=== PATIENT | female | born 1975 | race Caucasian/White ===

== ENCOUNTER 2017-12-09 11:57 | Emergency (ER) | payer BC ==
[~2017-12-09] VITALS: Ht 154.9 cm; Wt 63.5 kg
[~2017-12-09 11:57] MED LIST: ACETAMINOPHEN-1 EAC1 PO; CARAFATE 1 GM TA1 GM PO; HYDROXYCHLOROQ200 M1 PO; IBUPROFEN 800800 M1 PO; MEDROLDOSEPACK PO; PEPCID20 MG PO; PROMETHAZINE V473 ML PO; TESSALON PERLE100 MG PO; ZPAK PO
[2017-12-09] MEDS ORDERED: APAP650 PO (12:37)
[2017-12-09 13:17] LABS: INFLUENZA B ANTIGEN None Detected (None Detect)
[2017-12-09 14:42] VITALS: BP 139/73
== END 2017-12-09 14:42 | disposition home or self-care (01) ==
LOC: M.ERS 11:57
PROVIDERS: Emergency Medicine
DX: J09.X2 Influenza due to identified novel influenza A virus with other respiratory manifestations (principal); M06.9 Rheumatoid arthritis, unspecified; Z88.0 Allergy status to penicillin

== ENCOUNTER 2019-05-18 16:19 | Emergency (ER) | payer BC ==
[~2019-05-18] VITALS: Ht 154.9 cm; Wt 61.2 kg
[~2019-05-18 16:19] MED LIST changes: +APAP650 PO
[2019-05-18] MEDS ORDERED: ALLEGRA-D 12 H1 EAC1 PO (16:37)
[2019-05-18 17:47] LABS: ABSOLUTE BASOPHILS 0.1 thou/uL (0.0-0.2); ABSOLUTE EOSINOPHILS 0.3 thou/uL (0.0-0.7); ABSOLUTE LYMPHOCYTES 1.7 thou/uL (0.8-5.3); ABSOLUTE MONOCYTES 0.6 thou/uL (0.0-1.2); EOSINOPHILS 4.3 %; HEMATOCRIT 36.6 % (37.0-47.0); HEMOGLOBIN 12.4 gm/dL (12.0-15.0); LYMPHOCYTES 22.5 %; MCH 30.3 pg (26.0-34.0); MCHC 33.9 g/dL (28.0-37.0); MCV 89.3 fL (80.0-100.0); MONOCYTES 7.5 %; MPV 7.2 fl. (7.2-11.1); NUCLEATED RBCS 0 /100WBC; PLATELET COUNT* 275 thou/uL (150-400); POLYS 64.7 %; RDW-CV 13.1 % (10.5-14.5); WBC 7.8 thou/uL (4.0-11.0)
[2019-05-18 18:08] LABS: CALCIUM 8.2 mg/dL (8.5-10.1); CREATININE 0.8 mg/dL (0.6-1.3); POTASSIUM 3.6 mmol/L (3.5-5.1)
[2019-05-18 18:12] VITALS: BP 138/67
[2019-05-18 18:16] LABS: ALBUMIN 3.4 g/dL (3.4-5.0); TOTAL BILIRUBIN 0.2 mg/dL (<0.1-1.0); TOTAL PROTEIN 6.4 g/dL (6.4-8.2)
== END 2019-05-18 18:16 | disposition home or self-care (01) ==
LOC: M.ERS 16:19
PROVIDERS: Family Medicine
DX: G43.901 Migraine, unspecified, not intractable, with status migrainosus (principal); F17.210 Nicotine dependence, cigarettes, uncomplicated; Z79.899 Other long term (current) drug therapy; Z88.0 Allergy status to penicillin